=== PATIENT | male | born 1990 | race Caucasian/White ===

== ENCOUNTER 2020-03-24 23:34 | Emergency (ER) | payer SELFPAY ==
[~2020-03-24] VITALS: Ht 152.4 cm; Wt 108.6 kg
[2020-03-24 23:36] VITALS: BP 130/78
[2020-03-25] MEDS ORDERED: NORC1TAB7 PO (01:30)
[2020-03-25] MEDS ORDERED: IBUP-1022 PO (01:30)
[2020-03-25] MEDS ORDERED: NORCO 5/325MG TABLET (BULK FOR ED) PO ONE (01:30)
[2020-03-25] MEDS ORDERED: NORCO, ANEXSIA 5/325MG TABLET (HYDROcodone/ACETAMINOPHEN) PO ONE (01:30)
--- NOTE | 2020-03-25 08:37 | REP ---
REASON: Pain after trauma. There is a comminuted fracture involving the base of the 3rd metacarpal. There is dorsal angulation and soft tissue swelling. There is a subtle fracture seen involving the base of the 5th metacarpal on one view only. IMPRESSION: Fractures as described above. It should be stated that not all of the hand was imaged on this hand exam. Electronically Signed by Bhanu Bonds DO 03/25/2020 09:18 A
== END 2020-03-25 01:53 | disposition home or self-care (01) ==
LOC: M ED 23:34
DX: S62.312A Displaced fracture of base of third metacarpal bone, right hand, initial encounter for closed fracture (principal); S62.316A Displaced fracture of base of fifth metacarpal bone, right hand, initial encounter for closed fracture; F17.200 Nicotine dependence, unspecified, uncomplicated; W22.09XA Striking against other stationary object, initial encounter; Y92.89 Other specified places as the place of occurrence of the external cause; Y99.8 Other external cause status; Y93.9 Activity, unspecified